=== PATIENT | male | born 1965 | race Caucasian/White ===

== ENCOUNTER → 2016-09-27 | Outpatient (CLI) | payer MEDICARE, MEDICAID ==
--- NOTE | 2016-09-27 16:18 | REP ---
MR CERVICAL SPINE WITHOUT CONTRAST: HISTORY: Disc degeneration. Facet hypertrophy is present in the left at the C2-3 level. This produces minimal narrowing of the left C2 neural foramen. The right C2 neural foramina is patent. A disc bulge and small central disc protrusion are present at the C3-4 level. There is mild effacement of the thecal sac without spinal cord compression. The C3 neural foramina are patent. A disc bulge with associated osteophyte formation is present at the C4-5 level. There is moderate effacement of the thecal sac without spinal cord compression. Bilateral uncinate process hypertrophy is present. This produces mild and minimal narrowing of the right and left C4 neural foramina respectively. A disc bulge and small right paracentral disc protrusion with associated osteophyte formation are present at the C5-6 level. There is minimal spinal cord compression. Bilateral uncinate process hypertrophy is present. This produces moderate and mild narrowing of the right and left C5 neural foramina respectively. A disc bulge with associated osteophyte formation is present at the C6-7 level. There is moderate effacement of the thecal sac without spinal cord compression. Bilateral uncinate process hypertrophy is present. This produces moderate and mild narrowing of the right and left C6 neural foramina respectively. There is no other disc bulge or herniation. The remaining neural foramina are patent. The spinal cord is normal in signal intensity. The C4-5 through C6-7 intervertebral discs are decreased in height consistent with disc degeneration. Normal signal intensity is present in the cervical vertebral bodies. IMPRESSION: There is cervical spondylosis at the C2-3 through C6-7 levels most significant at the C5-6 level where there is minimal spinal cord compression. Signed by Deangelo Avendano MD 09/27/2016 04:24 P
--- NOTE | 2016-09-27 16:23 | REP ---
MR LUMBAR SPINE WITHOUT CONTRAST: HISTORY: Disc degeneration. Decreased signal intensity on T2-weighted images is present in the T11-12 through L4-5 intervertebral discs. The discs are decreased in height. This findings are consistent with disc degeneration. There is no disc bulge or herniation at the L1-2 and L5-S1 levels. There is hypertrophy of the posterior articulating facets at the L5-S1 level. The nerves exit the neural foramina without compression. A diffuse disc bulge is present at the L2-3 level. There is minimal compression of the thecal sac. A small right intraforaminal disc protrusion is present. There is compression of the right L2 nerve in the neural foramen without compression. The left L2 nerves exits the neural foramen without compression. A diffuse disc bulge is present at the L3-4 level. There is minimal compression of the thecal sac. The L3 nerves exit the neural foramina without compression. A diffuse disc bulge is present at the L4-5 level. There is minimal compression of the thecal sac. There is hypertrophy of the posterior articulating facets. The L4 nerves exit the neural foramina without compression. The conus medullaris is normal in appearance terminating at the level of the T12-L1 intervertebral discs . Increased signal intensity on T2-weighted images is present in the end plates of the L1 and 4 vertebral bodies. This represents degenerative changes. IMPRESSION: Diffuse disc bulges at the L2-3 and L4-5 levels with minimal thecal sac compression. A small right intraforaminal disc protrusion is present at the L2-3 level. There is compression of the right L2 nerve in the neural foramen. Signed by Deangelo Avendano MD 09/27/2016 04:25 P
== END ==
LOC: M RAD 14:46
PROVIDERS: ATTEND Physician Assistant
DX: M50.30 Other cervical disc degeneration, unspecified cervical region (principal); M51.36 Other intervertebral disc degeneration, lumbar region

== ENCOUNTER 2017-08-25 17:52 | Emergency (ER) | payer MEDICARE, MEDICAID ==
[2017-08-25] MEDS: FLUORESCEIN OPHTH 1 MG STRIP OD (19:00)
[2017-08-25] MEDS: FLUORESCEIN OPHTH 1 MG STRIP OS (19:32)
== END 2017-08-25 19:53 | disposition home or self-care (01) ==
LOC: M ED 17:52
DX: T15.02XA Foreign body in cornea, left eye, initial encounter (principal); T15.01XA Foreign body in cornea, right eye, initial encounter; H11.31 Conjunctival hemorrhage, right eye; Y92.099 Unspecified place in other non-institutional residence as the place of occurrence of the external cause; Y93.9 Activity, unspecified; I10 Essential (primary) hypertension; D86.9 Sarcoidosis, unspecified; Z79.82 Long term (current) use of aspirin; Z79.899 Other long term (current) drug therapy; Z88.0 Allergy status to penicillin; Z91.013 Allergy to seafood
CPT/HCPCS: 99283

== ENCOUNTER → 2018-11-23 | Outpatient (CLI) | payer MEDICARE, MEDICAID ==
[~2018-11-23] MED LIST: ADVA115A INH; AMLO10TA5 PO; ASPI1TAB15 PO; ATOR1TAB21 PO; CETI10TA PO; CYCL10TA PO; ESCI20TA PO; ESOM1CAP5 PO; FLUTISP; HYDR25TAB PO; PROAAER10 INH; SUDATAB18 PO; TOBR0.3S37 OP
--- NOTE | 2018-11-23 12:26 | REPVR ---
EXAM: MR Lumbar Spine Without Contrast. EXAM DATE/TIME: 11/23/2018 9:49 AM CLINICAL HISTORY: 53 years old, male; Low back pain; Patient HX: Pain from old injury? Fell from tree 3-4 yrs ago xrays done at [facility]; Additional info: Disc degeneration TECHNIQUE: Imaging protocol: Multiplanar magnetic resonance images of the lumbar spine without intravenous contrast. COMPARISON: SR - MRI-Spine, L.S. without con 09/27/2016 3:27:39 PM FINDINGS: Vertebral body heights are intact. Alignment is maintained. No pars defect is identified. The conus is unremarkable in appearance, with its tip at the T12 level. There are fairly similar degrees of disc desiccation indicating intervertebral disc degeneration. The visualized abdominal structures appear unremarkable. T12-L1: Included on the sagittal sequences only, there appears to be a similar small bulge with very mild right neural foraminal narrowing. L1-2: Similar minimal bulge combining with facet arthrosis to lead to very mild bilateral neural foraminal narrowing without significant spinal stenosis. L2-3: Mildly larger disc disc osteophyte complex combining with facet arthrosis to lead to moderate right and mild left neural foraminal narrowing with mild new right lateral recess narrowing, without significant central canal stenosis. There is again small fluid in the facet joints. L3-4: Similar small bulge combining with facet arthrosis to lead to mild right and very mild left neural foraminal narrowing without significant spinal stenosis. There is again small fluid in the facet joints. L4-5: Similar disc osteophyte complex combining with facet arthrosis to lead to mild right and moderate to severe left neural foraminal narrowing with mild bilateral lateral recess without There is small fluid in the right facet joint. L5-S1: Similar small bulge combining with facet arthrosis to lead to very mild right and mild left neural foraminal narrowing without significant spinal stenosis. If surgery is considered, recommend level confirmation. IMPRESSION: Multilevel disc desiccation indicating intervertebral disk degeneration with disc displacements as described. A disc osteophyte complex at L2-3 is mildly larger than on 09/27/16, with disc displacements otherwise fairly stable. Electronically signed by: Daniel Casillas On 11/23/2018 12:26:34 PM
== END ==
LOC: M RAD 07:59
PROVIDERS: ATTEND Physician Assistant
DX: M51.36 Other intervertebral disc degeneration, lumbar region (principal); M51.26 Other intervertebral disc displacement, lumbar region; M25.78 Osteophyte, vertebrae

== ENCOUNTER → 2022-05-31 | Outpatient (CLI) | payer MEDICARE, MEDICAID ==
[~2022-05-31] MED LIST changes: -AMLO10TA5 PO; +AMLO1TAB25 PO; +ASPI-546 PO; -ASPI1TAB15 PO; +CYCL-707 PO; -CYCL10TA PO; -ESCI20TA PO; +ESCI20TA16 PO; +HYDR-3490 PO; -HYDR25TAB PO
== END ==
LOC: M PLAIMG 10:42
PROVIDERS: ATTEND Internal Medicine Pulmonary Disease
DX: R91.8 Other nonspecific abnormal finding of lung field (principal); R59.0 Localized enlarged lymph nodes; D86.0 Sarcoidosis of lung